=== PATIENT | male | born 1970 | race Caucasian/White ===

== ENCOUNTER 2021-05-29 11:33 | Emergency (ER) | payer OTHER ==
[~2021-05-29] VITALS: Ht 152.4 cm; Wt 96.6 kg
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
--- NOTE | 2021-05-29 11:59 | NUR ---
SEEN AND EXAMINED BY .
[2021-05-29] MEDS ORDERED: KETOROLAC TROMETHAMINE 15 MG/ML VIAL ONE (12:00)
[2021-05-29] MEDS ORDERED: KETOROLAC TROMETHAMINE INJ 30 MG/ML VIAL IM ONE (12:00)
--- NOTE | 2021-05-29 12:04 | NUR ---
PARADICHLOROBENZENE TENDER AT BEDSIDE FOR XRAY.
[2021-05-29] MEDS ORDERED: CYCL5TAB PO (13:20)
[2021-05-29] MEDS ORDERED: IBUP-1957 PO (13:20)
[2021-05-29 13:39] VITALS: BP 163/90
--- NOTE | 2021-05-29 13:39 | NUR ---
Patient discharged to home in stable condition. Written and verbal after care instructions given. Patient verbalizes understanding of instruction.
== END 2021-05-29 13:39 | disposition home or self-care (01) ==
LOC: ER 11:59
DX: S13.4XXA Sprain of ligaments of cervical spine, initial encounter (principal); S40.012A Contusion of left shoulder, initial encounter; R51.9 Headache, unspecified; I10 Essential (primary) hypertension; E78.00 Pure hypercholesterolemia, unspecified; Z88.8 Allergy status to other drugs, medicaments and biological substances; Z79.899 Other long term (current) drug therapy; V49.49XA Driver injured in collision with other motor vehicles in traffic accident, initial encounter; Y93.89 Activity, other specified; Y92.488 Other paved roadways as the place of occurrence of the external cause; Y99.8 Other external cause status
CPT/HCPCS: 70450; 72125; 73030; 73564; 96372; 99285; J1885